=== PATIENT | male | born 1950 | race Caucasian/White ===

== ENCOUNTER 2022-01-02 14:00 | Outpatient (RCR) | payer MEDICARE, BC, SELFPAY ==
--- NOTE | 2021-10-12 12:51 | OT.OPGNE ---
OT Outpatient General/Neuro Eval OT Outpatient General/Neuro Eval Start: 10/11/21 15:55 Freq: Status: Active Protocol: Document 10/11/21 16:00 SMW (Rec: 10/12/21 12:35 SMW [id number]) E-Signed By Jenna Collazo OT Insurance Information Insurance Information Insurance Information Medicare B Outpatient History/Precautions Medical/Functional History Medical History Reviewed Yes Prior Level of Function/Mobility Patient lives alone in his own home. He reports independence in ADLS and most IADLS. He has neighbors that assist with outdoor yardwork and snow removal. He drives. He has had housekeeping services in the past and plans to reinstate services in the future. It is recommended he use a walker for mobility however, patient states he does not. He will use a cane inconsistantly. Current Condition Treatment Diagnosis decreased cognitive abilities for higher level executive function tasks. Social History Type of Dwelling Multilevel Home Lives With: Alone Physical Barriers in Home Environment Railing Ascend Right,Railing Ascend Left Employment Status Retired Oriented Patient Orientation Person,Place,Time,Situation Patient Subjective Subjective Patient Subjective I plan to tell me son that I am here today. Home Maintenance Assessment ADL Oral Care Ability Independent Bathing Ability Independent Eating (Feeding) Ability Independent Upper Body Dressing Ability Independent Lower Body Dressing Ability Independent Grooming Ability Independent Toileting Ability Independent Cognitive Assessments Performed Cognitive Assessments Performed Cognitive Assessments Performed MoCA home safety/problem solving Assessment Assessment Assessment The patient is a 70 year old male referred to outpatient OT for mild cognitive impairment . Patient lives alone in his own home. He reports I in all ADLs and most IADLs. He has outside family support from 2 sons. One of which is local. Today, the patient arrives to therapy without an assistive device, stating he left his cane in the car. His gait is poor, slow and very unsteady. He was pleasant during the OT evaluation. He is very social and does need some redirection to stay on task. The MoCa was administered with the patient scoring 26/20. Home safety/problem solving given with the patient scoring 14.5/ 17. Patient reports that son's would like him to move to an assisted living apartment in town. He has refused this and wants to stay in his home as long as possible. He is wearing a lifeline. He will benefit from skilled OT services to continue cognitive assessments, develop compensatory strategies and educate patient and family. Occupational Therapy Treatment Plan - OP Goals Goals Within 5 visits, the patient will.. 1. complete cognitive assessments in order to determine appropriate safety measures in order to stay in own home. 2. verbalize and follow thru with 3 compensatory strategies for decreased memory and executive function. 3. be educated on recommendations for safety in remaining in home. Progress set Treatment Plan Treatment Plan Self-Care/Home Management Expected Frequency 1x Week Expected Duration 4-6 Weeks Certification Certification I Certify That: Therapy Services Provided, Therapy Plan Established Document 10/11/21 16:30 SM (Rec: 10/12/21 12:50 SMW [id number]) E-Signed By Jenna Collazo OT Insurance Information Insurance Information Insurance Information Medicare B Outpatient History/Precautions Medical/Functional History Medical History Reviewed Yes Prior Level of Function/Mobility Patient lives alone in his own home. He reports independence in ADLS and most IADLS. He has neighbors that assist with outdoor yardwork and snow removal. He drives. He has had housekeeping services in the past and plans to reinstate services in the future. It is recommended he use a walker for mobility however, patient states he does not. He will use a cane inconsistantly. Social History Type of Dwelling [place] Home Lives With: Alone Physical Barriers in Home Environment Railing Ascend Right,Railing Ascend Left Employment Status Retired Oriented Patient Orientation Person,Place,Time,Situation Home Maintenance Assessment ADL Oral Care Ability Independent Bathing Ability Independent Eating (Feeding) Ability Independent Upper Body Dressing Ability Independent Lower Body Dressing Ability Independent Grooming Ability Independent Toileting Ability Independent Ambulation Ability Independent Home Management Meal Preparation Ability Independent Cleaning Ability Independent Shopping Ability Independent Cognitive Assessments Performed Cognitive Assessments Performed Cognitive Assessments Performed MoCA home safety/problem solving Assessment Assessment Assessment The patient is a 70 year old male referred to outpatient OT for mild cognitive impairment . Patient lives alone in his own home. He reports I in all ADLs and most IADLs. He has outside family support from 2 sons. One of which is local. Today, the patient arrives to therapy without an assistive device, stating he left his cane in the car. His gait is poor, slow and very unsteady. He was pleasant during the OT evaluation. He is very social and does need some redirection to stay on task. The MoCa was administered with the patient scoring 26/20. Home safety/problem solving given with the patient scoring 14.5/ 17. Patient reports that son's would like him to move to an assisted living apartment in town. He has refused this and wants to stay in his home as long as possible. He is wearing a lifeline. He will benefit from skilled OT services to continue cognitive assessments, develop compensatory strategies and educate patient and family. Occupational Therapy Treatment Plan - OP Goals Goals Within 5 visits, the patient will.. 1. complete cognitive assessments in order to determine appropriate safety measures in order to stay in own home. 2. verbalize and follow thru with 3 compensatory strategies for decreased memory and executive function. 3. be educated on recommendations for safety in remaining in home. Treatment Plan Treatment Plan Self-Care/Home Management Expected Frequency 1x Week Expected Duration 4-6 Weeks Certification Certification I Certify That: Therapy Services Provided, Therapy Plan Established
--- NOTE | 2021-11-29 18:24 | OT.OPODN ---
OT Outpatient Ortho Daily Note OT Outpatient Ortho Daily Note Start: 10/03/21 10:59 Freq: Status: Active Protocol: Document 11/29/21 15:27 AMB (Rec: 11/29/21 15:37 AMB [id number]) E-signed By Lucia Enamorado, OTR/L, CLT, CASING FLUID TENDER Type of Note Type of Note Type of Note Recert/Progress Note Visit Number 10 Insurance Information Insurance Information Medicare B Outpatient History/Precautions Insurance Information Insurance Information Medicare B Insurance Information Comments Late billing entered for due to [employer] build. Current Condition/Medical Diagnosis Referring Provider FLORESITA Márquez Treatment Diagnosis BUE CTR and Ulnar Nerve Transposition Date of Onset July 17August 07 Other Precautions SHIRA, has had OT to address this. Medical/Functional History Medical History Reviewed Yes Prior Level of Function/Mobility Patient lives alone in his own home. He reports independence in ADLS and most IADLS. He has neighbors that assist with outdoor yardwork and snow removal. He drives. He has had housekeeping services in the past and plans to reinstate services in the future. It is recommended he use a walker for mobility however, patient states he does not. He will use a cane inconsistantly. Social History Physical Barriers in Home Environment Railing Ascend Right,Railing Ascend Left Employment Status Retired Hobbies Pt loves to read. Oriented Mental Status Comments Pt did receive OT to address MCI. Ortho Subjective Subjective Subjective Pt no longer having constant pain. Pt states he is able to sleep if he remembers to put on his splints but he often forgets. Ptain is now down to 3-4/10 Pain Assessment Pain Present Pain Present Pain Reported Location Hand Description Burning,Sharp,Throbbing,Spasm, Stabbing,Shooting Intensity 4 OT OP Daily Ortho Note/Assessment Therapeutic Exercise Therapeutic Exercise Minutes (minutes) 10 Therapeutic Exercise Comments Review of HEP including BUE hand strengthening with green t-putty. Exs included hand rolling, tip pinch, lateral pinch, resisted MP flexion, gripping, and finger adduction . Pt requires demo and multiple cues for proper technique. Reviewed importance of wearing splints at night to relieve pressure and allow for good blood flow and nn conduction. Made signs for pt to hang on his bathroom mirror to remind him to wear splints to bed and to do his exercises. Ultrasound Ultrasound Location & Joint Position BUE volar wrists for anti- inflammatory and circulatory benefit as well as scar management 10 min each side. Ultrasound Frequency & Mode 1 MHz Pulsed Intensity (w/cm2) 1.5 Ultrasound Duration 10 minute Manual Therapy Manual Therapy Minutes (minutes) 15 Manual Therapy Comments Provided MT for STM and retrograde massage, IASTM for scar tissue release using Graston tools, BUE volar wrists and hands. Education Provided Exercise/Activity Teaching Recipient Patient Teaching Methods Verbal,Demonstration,Handout Response to Teaching Verbalize Understanding,Return Demonstration,Reinforcement Needed Safety Recommendations Teaching Recipient Patient Teaching Methods Verbal,Demonstration,Handout, Reinforcement Response to Teaching Verbalize Understanding,Return Demonstration,Reinforcement Needed Education Comments Pt needs lots of reminders and re-assurance. OT Objective Data Hand Hand Dominance Right Additional Information Objective Additional Information 11/29/21 Web Developer on the RUE is 47# , LUE is 38#. 3pt pinch on the RUE is 10#, LUE is 5#. Lateral pinch on the RUE is 14 #, LUE is 6#. AROM of the RUE wrist flexion is 80, ext is 70, UD is 40, RD is 25. AROM of the LUE wrist flexion is 80 , ext is 80, UD is 40, RD is 30. Monofilament tessting on the RUE thumb=3.61, Index=2.83 , 3rd digit=3.61, 4th digit=4. 31, 5th = 4.31, LUE thumb=3.61 , Index=2.83, 3rd digit=2.83, 4th digit = 2.83, and 5th digit is 3.61. 10/31/21 Web Developer on the RUE is 45# , LUE is 30#. 3pt pinch on the RUE is 8#, LUE is 4#. Lateral pinch on the RUE is 13 #, LUE is 6#. 10/24/21 Web Developer on RUE is 40#, LUE is 32#. Lateral pinch on RUE is 11#, LUE is 4#. 3pt pinch on RUE is 9#, LUE is 4#. 10/10/21 Web Developer on RUE is 45#, LUE is 44#. 3pt pinch on RUE is 9#, LUE is 5#, lateral pinch on RUE is 12#, LUE is 6#. 09/18/21 Web Developer on the RUE is 37# , LUE is 35#. 3pt pinch on the RUE is 83, LUE is 4#. Lateral pinch on the RUE is 12#, LUE is 6#. 08/28/21 AROM of the RUE wrist flexion is 65, ext is 70, UD is 40, RD is 25, pronation and supination are WNL. AROM of the LUE wrist flexion is 80, ext is 80, UD is 35, RD is 25, pronation and supination are WNL. Monofilament testing on the RUE thumb 2.83, I 3.61, 3rd 4.31, 4th 4.31, 5th 4.31. Monofilament testing on the LUE Th 3.61, I 2.83, I 2.83, 3rd 2.83, 4th 2.83. Web Developer on th eRUE is 28#, , LUE is 25#. 3pt pinch on the RUE is 6#, LUE is 2#. Lateral pinch on the RUE is 8#, LUE is 6#. AROM of BUE elbows are WFL, strength 4/5 flexion and extension. Incisional area are well healed, no drainage, skin is very dry. Pt is very unsteady on his feet, reaches for the wall and furniture, admits to multiple falls, lives alone but does have life alert. Pt is seeing PT tomorrow to address gait and balance. [ End ] Upper Extremity Special Tests Upper Extremity Special Tests Comments Comments Sensory improvements continue to be slow and inconsistent. OT Problems Problems Patient Potential Fair Assessment Assessment Assessment Pt demonstrates nice gains in ROM and strength. Sensory improvements slow and inconsistent / slowly. Progress has been limited due to cognitive deficits and pt forgetting to do exs and has not been wearing his splints. Pt will benefit from continued OT services to address remaining deficits including weakness which impairs his ability to zip / button clothing and waste picker small objects like change. Pt also states that sometimes he has trouble with eating utensils as well. Pt will benefit from continued skilled OT intervention to address residual weakness to improve / restore functional use of BUE . OT Outpatient Treatment Plan Ortho Barriers Barriers to Goal Attainment Impaired cognition, high fall risk with refusal to use AD Occupational Therapy Treatment Plan - OP Potential Rehabilitation Potential Fair Set Goals Goals Set with Patient Yes Goals Goals 1. Pt will be independent and compliant with HEP in order to resume full, pain-free use of the BUE. 3 weeks 2. Pt will demonstrate full, pain-free AROM of the BUE in order to improve ability to grasp and hold. 6 weeks 3. Pt will demonstrate pain- free pencil maker and pinch strength comparable to average for age and gender in order to improve functional grasp, hold, reach, and lifting ability needed to complete self-care, leisure tasks, and work activities. 8 weeks. Progress set Treatment Plan Treatment Plan Evaluation,Edema Control, Manual Therapy,Splinting, Ultrasound,Wound Care/Scar Management,Therapeutic Exercise,Therapeutic Activities Expected Frequency 1x Week Expected Duration 4-6 Weeks OT Treatment Minutes Treatment Minutes Timed Treatment Minutes 45 Total Timed Treatment Minutes 45 Occupational Therapy Billing Units Billing Units Manual Therapy 1 Therapeutic Exercise 1 Ultrasound 1 Certification Certification I Certify That: Therapy Services Provided, Therapy Plan Established, Therapy Plan Reviewed Recertification Information Recertification Information Initial Certification Date 08/28/21 Recertification Start Date 11/29/21 Recertification Due Date 02/28/22 Reasons to Continue Skilled Therapy Pt will benefit from continued OT services to address remaining deficits including weakness which impairs his ability to zip / button clothing and waste picker small objects like change. Pt also states that sometimes he has trouble with eating utensils as well. Pt will benefit from continued skilled OT intervention to address residual weakness to improve / restore functional use of BUE . Rehabilitation Potential Fair secondary to cognitive deficits, needs reminders and intervention for HEP. Continued Plan of Care and Interventions Continue OT 1-2x week US, MT, TA, TE, and self care. Provider Signature Shows Agreement With POC & Medical Necessity Physician Comment/Change Comment or Changes Physician NPI Number #
== END 2022-01-02 15:01 | disposition home or self-care (01) ==
PROVIDERS: PCP Family Medicine; Visit Provider Physician Assistant
DX: R26.9 Unspecified abnormalities of gait and mobility (principal)
CPT/HCPCS: 97035; 97110; 97112; 97116; 97140; 97165; 97535; X5282

== ENCOUNTER 2022-03-14 12:01 | Outpatient (CLI) | payer MEDICARE, BC, SELFPAY | END 2022-03-14 12:02 | disposition home or self-care (01) | LOC: OP CLINIC 12:02 | PROVIDERS: PCP Family Medicine; Visit Provider Surgery | DX: Z12.11 Encounter for screening for malignant neoplasm of colon (principal); K63.5 Polyp of colon; K57.30 Diverticulosis of large intestine without perforation or abscess without bleeding; Z86.010 Personal history of colon polyps | CPT/HCPCS: 45385; 88302; 88305; 99153; J1200; J2250; J3010 ==

== ENCOUNTER 2022-04-15 13:05 | Outpatient (CLI) | payer MEDICARE, BC, SELFPAY ==
[2022-04-15 23:20] LABS: Chloride* 107 mmol/L (96-114); Sodium* 139 mmol/L (135-149)
[2022-04-15 23:21] LABS: Potassium* 4.6 mmol/L (3.6-5.1)
[2022-04-15 23:23] LABS: Alanine Aminotransferase* 20 U/L (4-50); Blood Urea Nitrogen* 14 mg/dL (7-30); Carbon Dioxide* 25 mmol/L (20-32); Cholesterol* 99 mg/dL (90-199); Creatinine* 0.7 mg/dL (0.5-1.5); Estimated Glomerular Filt Rate 97 ml/min
[2022-04-15 23:24] LABS: Calcium* 8.8 mg/dL (8.4-10.6); Glucose* 100 mg/dL (60-115); HDL Cholesterol* 28 mg/dL (>=40); LDL Cholesterol Calculated 52 mg/dL (<100); Magnesium* 1.8 mg/dL (1.5-2.6); Triglycerides* 94 mg/dL (40-149)
[2022-04-15 23:33] LABS: Vitamin D 25 Hydroxy* 48 ng/mL (30-80)
[2022-04-15 23:49] LABS: PSA Screen* 2.44 ng/mL (0.10-4.00)
[2022-04-16 00:07] LABS: Vitamin B12* 756 pg/mL (243-894)
== END 2022-04-15 13:06 | disposition home or self-care (01) ==
PROVIDERS: PCP Family Medicine; Visit Provider Family Medicine
DX: E78.5 Hyperlipidemia, unspecified (principal); I10 Essential (primary) hypertension; E55.9 Vitamin D deficiency, unspecified; E11.9 Type 2 diabetes mellitus without complications; R53.1 Weakness; G62.9 Polyneuropathy, unspecified; Z12.5 Encounter for screening for malignant neoplasm of prostate
CPT/HCPCS: 80048; 80061; 82306; 82607; 83735; 84153; 84460

== ENCOUNTER 2023-01-29 12:25 | Outpatient (CLI) | payer MEDICARE, BC, SELFPAY | END 2023-01-29 12:26 | disposition home or self-care (01) | LOC: FBOREF 12:25 | PROVIDERS: PCP Family Medicine; Visit Provider Family Medicine | DX: I10 Essential (primary) hypertension (principal) | CPT/HCPCS: 80048 ==

== ENCOUNTER 2023-04-09 12:50 | Outpatient (CLI) | payer MEDICARE, BC, SELFPAY | END 2023-04-09 12:51 | disposition home or self-care (01) | PROVIDERS: PCP Family Medicine; Visit Provider Family Medicine | DX: E78.2 Mixed hyperlipidemia (principal); E11.9 Type 2 diabetes mellitus without complications; E55.9 Vitamin D deficiency, unspecified; I10 Essential (primary) hypertension; R32 Unspecified urinary incontinence | CPT/HCPCS: 80048; 80061; 81015; 84460; G0103 ==

== ENCOUNTER 2023-05-22 08:43 | Outpatient (CLI) | payer MEDICARE, BC, SELFPAY ==
--- NOTE | 2023-05-22 09:55 | W.ANESCHARGE ---
Anesthesia Charges Start Date/Time Anesthesia Start Date: 05/22/23 Anesthesia Start Time: 09:24 Stop Date/Time Anesthesia Stop Date: 05/22/23 Anesthesia Stop Time: 09:54
--- NOTE | 2023-05-22 10:09 | W.ANESCHARGE ---
Anesthesia Charges Start Date/Time Anesthesia Start Date: 05/22/23 Anesthesia Start Time: 09:24 Stop Date/Time Anesthesia Stop Date: 05/22/23 Anesthesia Stop Time: 09:54 Summary Extremes of Age - Over 70 or under 1: MDA
== END 2023-05-22 08:44 | disposition home or self-care (01) ==
LOC: OP CLINIC 08:45
PROVIDERS: PCP Family Medicine; Visit Provider Surgery
DX: K63.5 Polyp of colon (principal); K57.30 Diverticulosis of large intestine without perforation or abscess without bleeding; K64.9 Unspecified hemorrhoids; Z86.010 Personal history of colon polyps
CPT/HCPCS: 00811; 45385; 88305; 99100; J2704

== ENCOUNTER 2023-08-07 11:00 | Outpatient (RCR) | payer MEDICARE, SELFPAY ==
--- NOTE | 2023-05-01 16:09 | PT.OPEX ---
PT [place] Outpatient Eval initial eval requires signature PT [facility] Outpatient Eval Start: 05/01/23 07:50 Freq: Status: Active Protocol: Document 05/01/23 11:55 MIKE (Rec: 05/01/23 16:01 MIKE [id number]) E-signed By Facundo Still DPT Physical Therapy Outpatient Evaluation Insurance Information Recert Due Date 07/25/23 Insurance Name Medicare B,Blue [employer] Shield Medical Diagnosis balance disorder Treating Diagnosis unsteadiness on feet difficulty in walking muscle weakness Referring MD Elver Resendez Subjective Subjective *10 min late EllisMikel jackson, comes into clinic dealing with balance deficits and minimal amounts of low back pain.Pt states he needing his SPC along with occasional assist from sons or people in community to safely walk. States no falls in the last 6 months as he is very careful and intentional with movements. States he owns a FWW but does not like to use because it is 'awkward' and would feel like he is regressing. Has stairs at home with railings on both sides that he is also very careful with using. Pain Comments 0.5/10 Current Work Status Retired Precautions Treatment Precautions/Contraindications diabetes, balance disorder, hx of cancer-Squamous cell skin cancer, elbow, neuropathy, mild cognitive impairment, hx L rcr, hx or B TKA Objective Other/Pertinent Objective GAIT/FUNCTIONAL MOBILITY ambulates with SPC and use of Min A from therapist, increased flexed posture with ambulation Modified CTSIB- Clinical Test of Sensory Interaction and Balance - need 30 seconds Romberg eyes open firm surface : 30 seconds with feet within shoulder width but not touching Romberg eyes closed firm surface: 18 seconds with feet within shoulder width but not touching Romberg eyes open foam surface :14 seconds with feet within shoulder width but not touching Romberg eyes closed foam surface: 2 seconds with feet within shoulder width but not touching 5 time sts: 19 sec with UE assist, unable to perform without UE assist TUG 29-36 sec with SPC and FWW LLE MMT: Hip flexion: 4/5B Hip abduction: 4/5B Knee flexion: 4+/5B Knee extension: 4/5B Functional Test Performed & Score Modified CTSIB- Clinical Test of Sensory Interaction and Balance - need 30 seconds Romberg eyes open firm surface : 30 seconds with feet within shoulder width but not touching Romberg eyes closed firm surface: 18 seconds with feet within shoulder width but not touching Romberg eyes open foam surface :14 seconds with feet within shoulder width but not touching Romberg eyes closed foam surface: 2 seconds with feet within shoulder width but not touching 5 time sts: 19 sec with UE assist, unable to perform without UE assist TUG 29-36 sec with SPC and FWW Assessment Assessment/Impression Pt is a 72 yr old male who presents with concerns of balance deficits and generalized LE muscle weakness . Patient also has notable objective findings including impaired balance and decreased strength also likely contributing to the problem, based on objective findings pt would be considered a high fall risk. It was discussed with patient how a FWW would be the recommended AD of choice at this time to allow for the most support and stability. Patient is a good candidate for skilled therapy to target deficits described above. Skilled PT intervention is necessary for use of therapeutic exercise manual therapy, neuromuscular re- education, gait training, and therapeutic activity. Functional impairments include difficulty with: walking standing stairs . See appropriate sections of PT eval for complete list of goals and POC. D/C plan and criteria is for pt to achieve the goals as listed below or until max rehab potential is met. Pt was agreeable with plan of care and goals established. Plan of Care Rehabilitation Potential Fair Physical Therapy Goals GOALS Patient will demonstrate/ report ability to Tandem for 30 seconds bilateral , to allow for safety, improved ambulation on uneven terrain within 12 weeks Patient will demonstrate/ report ability to perform 5 time sts <12 seconds, to demonstrate improved falls risk within 12weeks Patient will demonstrate/ report ability to perform TUG <13.5 seconds with least restrictive device to demonstrate improved falls risk within 12 weeks Pt will be independent with HEP within weeks to allow for independence and continued improvement past formal therapy Coordination/Communication With Referral Source Treatment Plan/Direct Interventions Gait Training,Joint Mobilization,Manual Therapy, Neuromuscular Re-ed,Self-Care/ Home Management,Therapeutic Activities,Therapeutic Exercises Frequency/Duration 1-2 visits a week for 12 visits Patient Will Be Discharged From Therapy Completion of LTG(s), Independent w/HEP, Independently Progressing Evaluation Billing Untimed Code Treatment Minutes 30 Complexity Moderate Certification Information Physician Comment/Change : Physician NPI Number #
--- NOTE | 2023-07-24 17:04 | PT.OPDNX ---
Please review and sign the attached physical therapy recertification note. Most recent visit on 07/24/23. Thank you. PT [facility] Daily Note PT [facility] Daily Note Start: 05/01/23 07:50 Freq: Status: Active Protocol: Document 07/24/23 09:41 TLQ (Rec: 07/24/23 16:57 TLQ [id number]) E-signed By Elda Orr DPT PT OP Daily Progress Note Visit Information Note Type Daily Note,Recert/Progress Note Visit Number [id number] Insurance Information Recert Due Date 07/25/23 Insurance Name Medicare B,Ther[employer] Cross/[employer] Shield Medical Diagnosis balance disorder Treating Diagnosis unsteadiness on feet difficulty in walking muscle weakness Referring MD Elver Resendez Subjective Subjective Here without his cane today, forgot it at home. *patient arrived late for 07/23 appointment* Preferred Name Mikel Jay Treatment Precautions/Contraindications diabetes, balance disorder, hx of cancer-Squamous cell skin cancer, elbow, neuropathy, mild cognitive impairment, hx L rcr, hx or B TKA Home Exercise Home Exercise Comments Access Code: [email or web address] URL: [email or web address] Date: 07/07/2023 Prepared by: Elda Orr Exercises - Standing Narrow Base of Support with Chair - 3 x daily - 7 x weekly - 2-4 sets - 30-60 sec hold - Sit to Stand with Counter Support - 2-3 x daily - 7 x weekly - 1 sets - 10-15 reps - Heel Raises with Counter Support - 2-3 x daily - 7 x weekly - 1 sets - 10-15 reps - Seated Long Arc Quad - 2-3 x daily - 7 x weekly - 1 sets - 10 reps - 5-10sec hold - Standing Shoulder Scaption - 2 x daily - 7 x weekly - 1 sets - 10-20 reps - 3-5 hold - Side Stepping with Counter Support - 2 x daily - 7 x weekly - 2-3 sets - Backward Walking with Counter Support - 2 x daily - 7 x weekly - 2-3 sets Objective Other/Pertinent Objective gait: with 4ww: increased sway needing increased cueing to stay close to walker gait: with SEC: wide ARLETTE, slow twila, frequent touch assist from furniture/wall 5xSTS: 19 sec with UE assist, unable to perform without UE assist --> 15 seconds without UE assist, lacks full hip extension TUG 29-36 sec with SPC and FWW --> 16 seconds with SPC Functional Test Performed & Score Modified CTSIB- Clinical Test of Sensory Interaction and Balance - need 30 seconds Romberg eyes open firm surface : 30 seconds with feet within shoulder width but not touching Romberg eyes closed firm surface: 18 seconds with feet within shoulder width but not touching --> 28 seconds, mild postural sway Romberg eyes open foam surface :14 seconds with feet within shoulder width but not touching --> 30 seconds, moderate postural sway Romberg eyes closed foam surface: 2 seconds with feet within shoulder width but not touching Patient Instructed in Risks/Benefits Yes Therapeutic Exercise Therapeutic Exercise Minutes (minutes) 14 Therapeutic Exercise: To Restore - sit to stand x10 reps, cues Functional Status for eccentric control trialed no UE - standing squats with finger tip to no UE support x10 - standing marches at counter with support x20 reps - side steps along counter decreasing UE support to no external assist *seated rest between interventions* Neuromuscular Re-Ed Neuromuscular Reeducation Minutes ( 16 minutes) Neuromuscular Reeducation Comments - static balance: wide mod. tandem stance x20 second holds - standing forward and lateral weight shifts with stepping over yoga block, 1 hand on counter support, fatigues - static balance wide ARLETTE with e.c. on firm surface x20 seconds, close SBA - retro walks x10' distances, slow steps with close SBA *seated rest between interventions* other interventions not completed today: - standing balance normal ARLETTE with lateral reaching tasks and trunk rotation (ND) - static balance with head turns/nods x30 second bouts ( ND) Treatment Minutes Timed Code Treatment Minutes 30 Total Treatment Time 30 Billing Units Neuromuscular Reeducation Units 1 Therapeutic Exercise Units 1 Assessment/Impression Assessment/Impression Mikel returns to the clinic today ambulating without use of an assistive device, states he forgot his cane at home. Needing to use contact on therapists arm to slowly ambulate between therapy gym and clinic entrance. Patient states he has extra canes at home, I recommended he keep one these in his car to use as a back-up in case he forgets his cane again. As previously documented, this PT recommends patient use FWW for mobility as he moves more efficiently and with less postural sway when using walker versus cane, patient verbally declined this recommendation. Continues to fatigue quickly with standing strength and balance interventions, seated rest taken every 1-2 interventions with v/c for breathing for recovery. Reassessed CTSIB today, demonstrates improvements with conditions 2 and 3 but continues to required wider stance than Romberg stance for this assessment. He is appropriate for and will benefit from continued skilled interventions for conditioning , strength, and balance. Plan of Care Physical Therapy Goals GOALS Patient will demonstrate/ report ability to Tandem for 30 seconds bilateral, to allow for safety, improved ambulation on uneven terrain within 12 weeks. (PROGRESSING) Patient will demonstrate/ report ability to perform 5 time STS <12 seconds, to demonstrate improved falls risk within 12weeks. ( PROGRESSING) Patient will demonstrate/ report ability to perform TUG <13.5 seconds with least restrictive device to demonstrate improved falls risk within 12 weeks. ( PROGRESSING) Pt will be independent with HEP within 12 weeks to allow for independence and continued improvement past formal therapy. Daily Plan of Care Continue per POC Daily Plan of Care Comments Functional strength: side steps Static balance Dynamic balance Ambulatory endurance Recertification Information Initial Certification Date 05/01/23 Recertification Start Date 07/25/23 Recertification Due Date 10/23/23 Reasons to Continue Skilled Therapy Mikel continues to demonstrate functional balance deficits and limited endurance to physical activities. Slowly progressing strength and balance interventions to decrease risk of falls with home and community mobility. Continued skilled interventions appropriate to progress interventions to meet physical therapy goals. Rehabilitation Potential Fair Continued Plan of Care and Interventions Therapeutic exercise Therapeutic activity Gait training Neuromuscular re-education Provider Signature Shows Agreement With POC & Medical Necessity Physician Comment/Change Comment or Changes Physician NPI Number #
== END 2023-09-24 11:14 | disposition home or self-care (01) ==
PROVIDERS: PCP Family Medicine; Visit Provider Family Medicine
DX: R26.89 Other abnormalities of gait and mobility (principal); R26.81 Unsteadiness on feet; M62.81 Muscle weakness (generalized); Z51.89 Encounter for other specified aftercare
CPT/HCPCS: 97110; 97112; 97162

== ENCOUNTER 2024-04-16 11:00 | Outpatient (CLI) | payer MEDICARE, BC, SELFPAY | END 2024-04-16 11:01 | disposition home or self-care (01) | PROVIDERS: PCP Family Medicine; Visit Provider Family Medicine | DX: E11.9 Type 2 diabetes mellitus without complications (principal); E78.2 Mixed hyperlipidemia; Z12.5 Encounter for screening for malignant neoplasm of prostate; I10 Essential (primary) hypertension | CPT/HCPCS: 80048; 80061; 84460; G0103 ==

== ENCOUNTER 2024-05-31 06:56 | Outpatient (CLI) | payer MEDICARE, BC, SELFPAY ==
--- NOTE | 2024-05-31 08:21 | P.ANES_ITS ---
Anesthesia Charges Start Date/Time Anesthesia Start Date: 05/31/24 Anesthesia Start Time: 07:54 Stop Date/Time Anesthesia Stop Date: 05/31/24 Anesthesia Stop Time: 08:19 Summary Extremes of Age - Over 70 or under 1: BRAND COMMUNICATIONS MANAGER Coding CPT Codes CPT Codes: ANERonal LWR INTST SCR COLSC - 94687 ([id number]) P2 - PATIENT W/MILD SYST DISEASE, QX - BRAND COMMUNICATIONS MANAGER SVC W/ MD MED DIRECTION, QK - HOT PATCHER 2-4 CNCRNT ANES PROC Additional Codes: Summary - Extremes of Age - Over 70 or under 1: BRAND COMMUNICATIONS MANAGER ([id number])
--- NOTE | 2024-05-31 08:21 | W.ANESCHARGE ---
Anesthesia Charges Start Date/Time Anesthesia Start Date: 05/31/24 Anesthesia Start Time: 07:54 Stop Date/Time Anesthesia Stop Date: 05/31/24 Anesthesia Stop Time: 08:19 Summary Extremes of Age - Over 70 or under 1: PRODUCTION MANAGER Coding CPT Codes CPT Codes: ANERonal LWR INTST SCR COLSC - 07529 ([id number]) P2 - PATIENT W/MILD SYST DISEASE, QX - PRODUCTION MANAGER SVC W/ MD MED DIRECTION, QK - HAIRSPRING SETTER 2-4 CNCRNT ANES PROC Additional Codes: Summary - Extremes of Age - Over 70 or under 1: PRODUCTION MANAGER ([id number])
--- NOTE | 2024-05-31 08:25 | P.ANES_ITS ---
Anesthesia Charges Start Date/Time Anesthesia Start Date: 05/31/24 Anesthesia Start Time: 07:54 Stop Date/Time Anesthesia Stop Date: 05/31/24 Anesthesia Stop Time: 08:19 Summary Extremes of Age - Over 70 or under 1: MDA Coding CPT Codes CPT Codes: ANES LWR INTST SCR COLSC - 41065 ([id number]) P2 - PATIENT W/MILD SYST DISEASE, QK - PIE ICER MACHINE 2-4 CNCRNT ANES PROC, QX - TOBACCO STRIPPING MACHINE OPERATOR SVC W/ MD MED DIRECTION Additional Codes: Summary - Extremes of Age - Over 70 or under 1: MDA ([id number])
--- NOTE | 2024-05-31 08:25 | W.ANESCHARGE ---
Anesthesia Charges Start Date/Time Anesthesia Start Date: 05/31/24 Anesthesia Start Time: 07:54 Stop Date/Time Anesthesia Stop Date: 05/31/24 Anesthesia Stop Time: 08:19 Summary Extremes of Age - Over 70 or under 1: MDA Coding CPT Codes CPT Codes: ANES LWR INTST SCR COLSC - 37836 ([id number]) P2 - PATIENT W/MILD SYST DISEASE, QK - MEDICAL MALPRACTICE PARALEGAL 2-4 CNCRNT ANES PROC, QX - EXCELSIOR MACHINE FEEDER SVC W/ MD MED DIRECTION Additional Codes: Summary - Extremes of Age - Over 70 or under 1: MDA ([id number])
== END 2024-05-31 06:57 | disposition home or self-care (01) ==
LOC: OP CLINIC 06:57
PROVIDERS: PCP Family Medicine; Visit Provider Internal Medicine
DX: Z12.11 Encounter for screening for malignant neoplasm of colon (principal); Z86.0100 Personal history of colon polyps, unspecified; K57.30 Diverticulosis of large intestine without perforation or abscess without bleeding
CPT/HCPCS: 00812; 45378; 99100; J2704

== ENCOUNTER 2024-08-31 13:30 | Outpatient (RCR) | payer MEDICARE, BC, SELFPAY ==
--- NOTE | 2024-08-10 15:42 | PT.OPEX ---
PT [facility] Eval PT [facility] Eval Start: 08/10/24 12:59 Freq: Status: Active Protocol: Document 08/10/24 13:00 CRP (Rec: 08/10/24 15:39 CRP [id number]) E-signed By Shorty Shrestha PT Physical Therapy Outpatient Evaluation Insurance Information Recert Due Date 11/08/24 Insurance Name Medicare B Medical Diagnosis Left Low Back Pain Balance deficits Referring MD Capri Arthur CHANNEL INSTALLER Subjective Subjective Pt has a long hx of lumbar spine issues. Has had synovial cysts that needed to be addressed surgically. Had fusion about 7 years ago at the lumbar spine. Once he recovered from the surgery he did well. About 6 weeks ago he started having a lot of problems trying to go to sleep at night. Back was very painful. Days were pretty good. Pt did go to urgent care beginning of July. Overall he had been having some degree of LBP for about 6 months. Was prescribed Flexiril and pt took ibuprofen . Pt reports that he has been nearly pain free for about a week. Pt notes that along with his LBP he has had a long hx of balance issues. Needs some sort of AD. Is currently using walking stick. Pain Comments 0/10 Current Work Status Retired Objective Other/Pertinent Objective Standing balance: compromised, See Tinetti Balance Score Trunk ROM: frank loss into ext, frank loss bilat ext. flex mod dec Hip ROM WFL MMT: Myotomes WNL. Hip ext 4- /5 bilat Sensation: Intact to light touch bilat LEs SLS balance test: unable bilaterally without 2 hand held assist Gait: Pt ambulates with a walking stick. Shows very wide base of support. He is at risk for falling with any change in direction. Pt also shows risk for falling with starting and stopping momentum Functional Test Performed & Score Tinetti: 04/03 Assessment Assessment/Impression Pt presents to PT after recent bout of severe LBP. Pt has only been without LBP for about a week but still shows restricted trunk mobility and risk for return of sxs with increased activity. Pt's history and current findings with trunk mobility suggest a mechanical nature to his pain that should respond well to guided exer. At this time, there is more concern for his balance deficits. Pt notes that he is feeling more and more insecure about his gait and balance and is coping with this by choosing to do less and less. Pt is objectively at high risk for falls as noted by a 04/03 on his Tinetti Balance Score. Skilled PT is recommended to address ongoing mechanical dysfunction of the trunk as well as address ongoing issues with balance and his increased risk for falling. Primary Functional Limitations Sit to stand Static stance Gait Balance with transitional movements Plan of Care Rehabilitation Potential Good Physical Therapy Goals 1. Pt will be independent with HEP in 8 weeks. 2. Pt will complete self cares without co in 10 weeks. 3. Pt will score 22 or greater on Tinetti Balance Score thereby showing substantial change in his risk for falling in 12 weeks. Coordination/Communication With Referral Source Treatment Plan/Direct Interventions Gait Training,Manual Therapy, Neuromuscular Re-ed,Self-Care/ Home Management,Therapeutic Activities,Therapeutic Exercises Direct Interventions Clarification Balance exercise Comments Frequency/Duration 1-2x/wk for 12 weeks Patient Will Be Discharged From Therapy Completion of LTG(s),Skills Plateau,Independent w/HEP, Independently Progressing Evaluation Billing Untimed Code Treatment Minutes 40 Complexity Moderate Certification Information Initial Certification Date 08/10/24 Ending Certification Date 11/08/24 Provider Signature Required Yes Provider Signature Shows Agreement With POC & Medical Necessity Physician NPI Number Write NPI# Here Physician Comment/Change : Physician Signature & Date Requested Please Sign/Date Here
== END 2024-12-29 23:59 | disposition home or self-care (01) ==
PROVIDERS: PCP Family Medicine; Visit Provider Nurse Practitioner
DX: M54.50 Low back pain, unspecified (principal); Z51.89 Encounter for other specified aftercare
CPT/HCPCS: 97110; 97112; 97116; 97162

== ENCOUNTER 2025-03-20 15:18 | Emergency (ER) | payer MEDICARE, BC, SELFPAY ==
--- OUTSIDE RECORDS SUMMARY | 2025-03-20 15:20 | XMS_ITS | Clinical Summary ---
Author Organization [facility] Address [address] [place] [address] Care Team Providers Care Primer Powder Blender Wet Name Role Phone Elver Dumont MD Primary Care Provider + Allergies No known active allergies Medications MedicationSigDispense QuantityRefillsLast FilledStart DateEnd DateStatus cyanocobalamin 1,000 mcg tablet Take 1,000 mcg by mouth once weekly.Active simvastatin (ZOCOR) 20 mg tablet Take 20 mg by mouth at bedtime.Active ibuprofen (ADVIL; MOTRIN) 200 mg tablet Take 600 mg by mouth every 4 hours if needed.Active gabapentin (NEURONTIN) 300 mg capsule TAKE 2 CAPSULES BY MOUTH THREE TIMES DAILY NEEDED FOR PAIN12/15/2020ctive furosemide (LASIX) 20 mg tablet Take 20 mg by mouth once daily.12/13/2020ctive melatonin 3 mg tablet Take 3 mg by mouth.Active FLUoxetine (PROZAC) 20 mg capsule Take 20 mg by mouth once daily.12/15/2020ctive HYDROmorphone (DILAUDID) 4 mg tablet TAKE 1 TABLET BY MOUTH EVERY 4 TO 6 HOURS FTFTFA6312/15/2020ctive cholecalciferol (VITAMIN D3) 50,000 unit capsule 01/15/2020Active pyridoxine, vitamin B6, (VITAMIN B6) 25 mg tablet Take 1 Tablet by mouth once daily.06/21/2020ctive Active Problems ProblemNoted DateDiagnosed DateRespiratory vrpobgs4212/23/2016Adenomatous polyp of colon12/23/2016 Overview (12/23/2016): Overview: repeat in 2019 Xevapsuqnrdxwp71/18/2017Type 2 diabetes ahwhtyoj72/18/2017Non morbid obesity due to excess zquecjiq82/30/2017Lumbar radiculopathy, acute07/02/2013Essential baqpoegokdvz72/02/2011 Overview (12/23/2016): Overview: Hypertension Osteoarthrosis, unspecified whether generalized or localized, unspecified site 07/31/2007 Immunizations ImmunizationAdministration DatesNext DueHepA-HepB (Twinrix)08/14/2016,02/07/2016 ,01/09/2016Influenza A (H1N1), Fparuchxobd69/11/2010Influenza, High-dose Taaswrvmkit72/31/2019,12/31/2017,12/17/2016,01/09/2016,01/24/2015,12/08/2013 Influenza, High-dose Quadrivalent Ukaumzuybmk22/25/2021,12/09/2019Influenza, IIV3 (Age 6-35 mos)02/04/2012,01/09/2011Influenza, IIV3 (Age >=3 years) 12/25/2006Influenza, IIV4 (Age 6-35 Mos)12/18/2012Pneumococcal Poly,23-Valent (Pneumovax)12/04/2016,03/28/2011Pneumococcal conj 13-Valent (Prevnar 13) 05/17/2015Td (Age >=7 Years)10/04/2003Tdap12/09/2019,04/11/2010Zoster (Shingrix- RZV, recombinant)09/30/2017,06/26/2017Zoster (Zostavax-ZVL, live)03/28/2011 Social History Tobacco UseTypesPacks/DayYears UsedDateSmoking Tobacco: NeverSmokeless Tobacco: NeverAlcohol UseStandard Drinks/WeekCommentsNo0 (1 standard drink = 0.6 oz pure alcohol)Sex and Gender InformationValueDate RecordedSex Assigned at BirthNot on fileLegal SvsVhqi0004/20/2012 5:24 AM CSTGender IdentityNot on fileSexual OrientationNot on file Last Filed Vital Signs Vital SignReadingTime TakenCommentsBlood Bsnagwhx255/6709 10:21 AM CDT Nxign965612/25/2020 10:21 AM XUYYdacibfdlcb91.7 ??C (98.1 ??F)12/25/2020 10:21 AM CDTRespiratory Ehmp266812/26/2016 8:44 AM CDTOxygen Flcgzjbeys44%12/26/2016 8:44 AM CDTInhaled Oxygen Concentration--Kzyiuq03.8 kg (220 lb)12/25/2020 10:21 AM KMMEqbmld749.2 cm (5' 7)12/25/2020 10:21 AM CDTBody Mass Index34.46012/25/2020 10:21 AM CDT Plan of Treatment Health MaintenanceDue DateLast DoneCommentsDepression screening for age 12+ 1960Hepatitis C screening for age 18-7910/31/1966Medicare Wellness for age 65+2013MI (ht and wt on same day) for age 18+, 10/17/2016RSV vaccine for adults or (1 - 1-dose 75+ series)11/01/2023 COVID-19 vaccine series ( season)/, 06/28/2020 Influenza Vaccine (#1)/, 12/31/2017, 12/17/2016, Additional history existsTetanus tqatidf44, 04/11/2010, 10/04/2003 Hepatitis B series for 19+Khuehtenf87/10/2017, 02/07/2016, 01/09/2016 Pneumococcal series for age 50+Lnovpbvly10/30/2017, 05/17/2015, 03/28/2011Zoster (shingles) series for age 50+Yqsfnsafy84/26/2018, 06/26/2017, 03/28/2011 Medical Devices ImplantedTypeAreaManufacturerDevice IdentifierShelf Expiration DateModel / Serial / LotBaseplate Tibial Janee Ii [id number] - [id number] [facility]: KneeSMITH AND NEPHEW [id number]# / / [id number] Patella Janee Ii [id number] - [id number] Implanted:Qty: 1 [facility]29/[facility] Right: KneeSMITH AND NEPHEW [id number]# / / [id number] Sz32 Janee Ii Rnd Penon Pors - [id number] Implanted:Qty: 1 on 12/23/2016 [facility]: KneeSmith And Nephew Xqxbbbvgdjj42/18/[id number]# / / [id number] Bone Surg Simplex - [id number] Implanted:Qty: 1 [facility]29/[facility]nee [id number]# / / [id number] 1/2 Dosehowmedica - [id number] Implanted:Qty: 2 [facility]29/2007 [facility]nee [id number]# / / [id number] Fem [id number] - [id number] Implanted:Qty: 1 [facility]/29/2007 [facility] KneeSMITH AND NEPHEW [id number]# / / [id number] Cr Sz 5-6 9mm Deep Flexion Gii - [id number] Implanted:Qty: 1 [facility]29/2007 [facility] KneeSMITH AND NEPHEW [id number]# / / [id number] Bone 40g Simplex Hv Gentamicin - [id number] Implanted:Qty: 1 on 12/23/2016 [facility]St[facility]en[facility] Znkmhyncvntd87/18/[id number]# / / [id number] Bone 40g Simplex Hv - [id number] Implanted:Qty: 1 on 12/23/2016 [facility] KneeStryker Kvvauqggeeqg81/18/[id number]# / / [id number] Tib Lt Sz 5 Pin Drafter Journey - [id number] Implanted:Qty: 1 on 12/23/2016 [facility] KneeSmith And Nephew Ntrhydxtcwy88/18/[id number]# / / [id number] Lt Sz7 Journey Ii Bcs Oxin - [id number] Implanted:Qty: 1 on 12/23/2016 [facility]: KneeSmith And Nephew Njrgugjqkjr93/18/[id number]# / / [id number] Knee Lt Sz5-6 9mm Journey Ii Bcs Bi Cruc Stbz - [id number] Implanted:Qty: 1 on 12/23/2016 by [facility]: KneeSmith And Nephew Seyfhybcrlk75/18/[id number]# / / [id number] [place] [address] Advance Directives * Full Code (Latest Code Status on File) Date ActivatedDate InactivatedComments12/23/2016 1:24 PM12/26/2016 6:02 PM * Full Code Date ActivatedDate InactivatedComments12/23/2016 12:26 PM12/23/2016 1:24 PM * Full Code Date ActivatedDate InactivatedComments12/23/2016 6:30 AM12/23/2016 12:08 PM * Full Code Date ActivatedDate InactivatedComments07/29/2007 5:49 AM08/02/2007 4:13 PM Care Teams Team MemberRelationshipSpecialtyStart DateEnd Date Elver Dumont MD [address] [place] [id number] [facility] - [facility]/21/20
--- OUTSIDE RECORDS SUMMARY | 2025-03-20 15:20 | XMS_ITS | Clinical Summary ---
Author Organization [facility] Address [address] [place] [address] Care Team Providers Care Gaming Dealer Name Role Phone Aleyda Porras MD Primary Care Provider Source Comments You are receiving this document as you are listed as the primary care provider,follow-up provider, or the patient has been referred to you for consultation.This is in compliance with the Medicare and[facility] Hospitalcaid EHR Incentive Program,which states Providers who transition their patient to another setting of careor provider of care or refers their patient to another provider of care shouldprovide summary care record for each transition of care or referral. [facility] Allergies No known active allergies Medications MedicationSigDispense QuantityRefillsLast FilledStart DateEnd DateStatus melatonin 3 MG tablet Take 1 Tablet (3 mg) by mouth daily at bedtime.Active cyanocobalamin (VITAMIN B12) 1000 MCG tablet Indications:Vitamin B12 deficiency (HRC)Take 1 Tablet by mouth daily.06/14/2019 Active Cholecalciferol (VITAMIN D3) 1.25 MG (56864 UT) CAPS 01/15/2020Active simvastatin (ZOCOR) 20 MG tablet Indications:Hyperlipidemia, unspecified hyperlipidemia type (HRC)Take 1 Tablet by mouth daily at bedtime. 90 Tablet ctive pyridoxine (VITAMINB-6) 25 MG tablet Indications:Vitamin B6 deficiency (HRC)Take 1 Tablet by mouth daily. 06/21/2020ctive ibuprofen (MOTRIN) 200 MG tablet Take 3 Tablets (600 mg) by mouth every 4 hours as needed for Pain.Active ketorolac (TORADOL) 10 MG tablet 10/04/2020ctive lisinopril (ZESTRIL) 10 MG tablet Indications:HypertensionTake 1 Tablet by mouth daily. Indications: High Blood Pressure Disorder 30 Tablet ctive amoxicillin (AMOXIL) 500 MG capsule Take 2 Capsules (1,000 mg) by mouth two times a day.10/16/2022ctive famotidine (PEPCID) 20 MG tablet Take 1 Tablet (20 mg) by mouth two times a day.Active gabapentin (NEURONTIN) 300 MG capsule Take 2 Capsules (600 mg) by mouth daily at bedtime.10/15/2022ctive Active Problems ProblemNoted DateDiagnosed DateElevated PSA10/23/2020Vitamin B6 deficiency 06/20/2020bnormal gait06/24/2019Sensorineural hearing loss of both ears 05/26/2019Rotator cuff tear arthropathy of left pmexdsew53/16/2020Chronic left shoulder pain05/23/2019Cervical stenosis of spine01/13/2018 Overview (01/13/2018): Mild to moderate at C3-4 due to disc bulge and posterior marginal endplate spurs on CT c-spine 12/2017 Facet arthritis of cervical olxfnp5001/13/2018Severe obstructive sleep apnea 11/12/2017 Overview (10/16/2022): Setting: CPAP 9 cmH20 Supplied by: [facility] PSG done: 04/20/2018 (10/26/17 HST; 06/04/19 titration) AHI 32 RDI 34 Lowest O2 Sat: 85% Davis/Trell Wandering atrial xapspxieh39/09/2017Non morbid obesity due to excess calories 12/04/2016Synovial cyst of lumbar facet joint07/16/2013Lumbar radiculopathy, acute07/02/2013Essential /02/2011HyperlipidemiaType 2 diabetes mellitusAdenomatous polyp of colon Overview (05/01/2020): repeat colonoscopy in 2024 Osteoarthritis Resolved Problems ProblemNoted DateDiagnosed DateResolved DateCOVID-19 ruled out12/03/2019 05/01/2020MCI (mild cognitive impairment) Overview (05/30/2020): Diagnosed by ST evaluation at TCU post hospitalization in 04/2019. SLUMS score was 21/330, CPT 5.1/5.6. MOCA in 2019 and 2020 in clinic. No patient cognitive complaints. Combined forms of age-related cataract of both eyes Overview (07/20/2018): Added automatically from request for surgery [id number] Immunizations ImmunizationAdministration DatesNext DueFlu Vac (3+ yrs)12/25/2006Flu Vac Preserv Free (3+yrs)02/04/2012,01/09/20117043E7B8-Adpdqeelpi25/11/2010HepA-HepB ([place], 18+ yrs)08/14/2016,02/07/2016,01/09/2016Influenza (Fluzone 0.25, 6-35 mos)12/18/2012Influenza IIV3 (Trivalent) Fluzone Highdose, 65+ Yrs (87916) 02/04/2019,12/31/2017,12/17/2016,01/09/2016,01/24/2015,12/08/2013Influenza IIV4 (Quadrivalent) 0.5mL (06643)12/18/2012Influenza Vaccine (3+years) ([facility]) 01/09/2016PCV13 (Prevnar)05/17/2015PPSV23 (Pneumovax)12/04/2016,03/28/2011Pfizer Monovalent 12+ Purple Top07/19/2020,06/28/2020TDAP (ADACEL)04/11/2010Td 10/04/2003Zoster (Zostavax)03/28/2011Zoster RZV (Shingrix)09/30/2017,06/26/2017 Family History Medical HistoryRelationNameCommentsCancer, PancreaticBirth FatherUrolithiasis FatherCancer, ColonBirth MotherCataractBirth MotherMacular Degeneration MotherUrolithiasisBirth MotherUrolithiasisBrotherUrolithiasisSister 1 UrolithiasisSister 2UrolithiasisSister 3Cancer, EsophagealSister 4Drug Abuse Sister 4HypertensionSon 1BrianNo Known ProblemsSon 2DavidAmblyopia/Strabismus Negative Family HistoryAnesthesia ReactionNegative Family HistoryCancer, ProstateNegative Family HistoryDiabetesNegative Family HistoryGlaucomaNegative Family HistoryRetinal DetachmentNegative Family HistoryRelationNameStatus CommentsBirth FatherDeceased (Age 82) MotherDeceasedBrotherAliveMaternal GrandfatherDeceasedMaternal GrandmotherDeceasedPaternal GrandfatherDeceased Paternal GrandmotherDeceasedSister 1AliveSister 2AliveSister 3AliveSister 4 (Age 64)complications of throat cancerSon 1BrianAliveSon 2DavidAlive Social History Tobacco UseTypesPacks/DayYears UsedDateSmoking Tobacco: NeverSmokeless Tobacco: NeverAlcohol UseStandard Drinks/WeekCommentsNo0 (1 standard drink = 0.6 oz pure alcohol)PHQ-2AnswerDate RecordedPHQ-2 Tmuso017ex and Gender Information ValueDate RecordedSex Assigned at BirthNot on fileLegal AptHcdh3907/22/2014 11:57 PM CDTGender IdentityNot on fileSexual OrientationNot on fileOccupationIndustry Job Start DateJob End Dateretired union officialNot on fileNot on fileNot on file Last Filed Vital Signs Vital SignReadingTime TakenCommentsBlood Nizyernk650/9307 4:10 PM CDT Hutzw246310/16/2020 4:10 PM CDTPt zyfcwbmxBamwtgcxyig31.3 ??C (97.4 ??F)10/16/2020 4:10 PM CDTPt reportedRespiratory Ouqh971110/15/2020 9:16 AM CDTOxygen Saturation 99%10/15/2020 9:16 AM CDTInhaled Oxygen Concentration--Ddmsvq804.3 kg (230 lb) 10/21/2022 11:46 AM AMKOtfxkn169.7 cm (5' 8)10/21/2022 11:46 AM CDTBody Mass Index34.9710/21/2022 11:46 AM CDT Plan of Treatment Health MaintenanceDue DateLast DoneCommentsPneumococcal PCV20 Immunization Audvgmwaxn86/27/1951DTaP/Tdap/Td Vaccine (2 - Tdap)/08/2010, 10/04/2003Diabetes: Albumin/Creatinine Ratio, Urine/, 12/17/2017, 12/04/2016, Additional history existsDiabetes: AEJB3A4404/25/2021 10/23/2020, 05/01/2020, 05/12/2019, Additional history existsDiabetes: Foot Exam / (Completed), 06/16/2018 (Completed), 06/26/2017 (Completed), Additional history existsDiabetes: Eye Exam/, 05/25/2020, 05/25/2020, Additional history existsMedicare Annual Wellness Visit /, 05/26/2019, 12/31/2017Diabetes: Mgbguffcbd29/19/2022 10/23/2020, 06/02/2020, 05/01/2020, Additional history existsRSV Vaccine (1 - 1- dose 75+ series)11/01/20234659Rdaudbegkbm30/27/63407106/03/2019, 10/04/2015, 04/30/2010COVID-19 Vaccine ( season)/, 07/24/2021, 02/20/2021, Additional history existsInfluenza Vaccine (#1)/09/2021, 11/29/2020, 02/04/2019, Additional history existsDiabetes: Lipid Panel05/01/2025 05/01/2020, 12/17/2017, 12/11/2016, Additional history existsHepA Vaccine Zthteymdb37/10/2017, 02/07/2016, 01/09/2016HepB QxrzgtzPlrczdrwg98/10/2017, 02/07/2016, 01/09/2016Hep C Screening (Preventive Services)Buqgwvctr96/30/2017, 01/18/2015Pneumococcal Vaccine 50+ RqdReawoklem97/30/2017, 05/17/2015, 03/28/2011Zoster/Shingles DmtprlzQtxtovuni48/26/2018, 06/26/2017, 03/28/2011Hib VaccineAged OutNo longer eligible based on patient's age to complete this topic MCV4 VaccineAged OutNo longer eligible based on patient's age to complete this topicMeningococcal B VaccineAged OutNo longer eligible based on patient's age to complete this topic Medical Devices ImplantedTypeAreaManufacturerDevice IdentifierShelf Expiration DateModel / Serial / LotLens Iol Tecnis Zcb00 22.5 - [id number] Implanted:Qty: 1 on 10/26/2018 [facility] [employer] [id number] / [id number] / Lens Iol Tecnis Zcb00 23.5 - [id number] Implanted:Qty: 1 [facility] 11/09/[facility] [employer] [id number] / [id number] / 0000 Procedures Procedure NamePriorityDate/TimeAssociated DiagnosisCommentsBASIC METABOLIC PANEL Hcimlvl1810/23/2020 10:22 AM CDT Type 2 diabetes mellitus without complication, without long-term current use of insulin (HRC) HGB D1JNrnsvgd16/19/2021 10:22 AM CDT LIPID PANEL & DIRECT LDL (IF NEEDED)Ytgphje4505/01/2020 1:39 PM CRYPTOLOGIC LINGUIST Hyperlipidemia, unspecified hyperlipidemia type ENDOSCOPY, COLON, SCREENING/LVZORJIMDAPzffxja87/27/2020 1:25 PM CRYPTOLOGIC LINGUIST Adenomatous polyp of colon, unspecified part of colon ALBUMIN/CREAT QBQNAOglykzs54/14/2020 1:59 PM CRYPTOLOGIC LINGUIST Type 2 diabetes mellitus without complication, without long-term current use of insulin (HRC) HEPATITIS C ANTIBODY, WITH REFLEX (ANTI-HCV)Efcycdl8012/04/2016 3:45 PM CDT Need for hepatitis C screening test from Last 3 Months or Most Recently Relevant to Health Maintenance Results * (ABNORMAL) Basic Metabolic Panel (10/23/2020 10:22 AM CDT)ComponentValueRef RangeTest MethodAnalysis TimePerformed AtPathologist MurkujubtGajohh487190 - 145 mmol/L10/23/2020 11:16 AM [facility] LABORATORYPotassium4.03.5 - 5.1 mmol/L10/23/2020 11:16 AM [facility] LMPADNMEOTHotvdrlz22998 - 109 mmol/L 10/23/2020 11:16 AM [facility] PBPUOHDWXIQT08872 - 29 mmol/L10/23/2020 11:16 AM [facility] LABORATORYAnion Xew023 - 16 mmol/L10/23/2020 11:16 AM [facility] LABORATORYCalcium9.78.4 - 10.4 mg/dL10/23/2020 11:16 AM [facility] ECKBPUHXHEYSV08(H)7 - 26 mg/dL10/23/2020 11:16 AM [facility] LABORATORYCreatinine0.800.73 - 1.18 mg/dL10/23/2020 11:16 AM [facility] LABORATORYGFR, Estimated>60>60 mL/min/1.88e94610/23/2020 11:16 AM [facility] BORNNBZLPDHvxwcss750(H)70 - 100 mg/dL10/23/2020 11:16 AM [facility] LABORATORYComment:The given reference range is for the fasting state. Non- fasting reference range for glucose is 70 -180 mg/dL.Hours Zskikmc0446/19/2021 11:16 AM [facility] LABORATORYSpecimen (Source)Anatomical Location / LateralityCollection Method / VolumeCollection TimeReceived TimeBlood Venipuncture / Qfcvriv6810/23/2020 10:22 AM CDT10/23/2020 10:50 AM CDT Narrative Authorizing ProviderResult TypeResult StatusLeester Porras MDLAB_1Final ResultPerforming OrganizationAddressCity/State/ZIP CodePhone Number [facility] [address] [place] [address], [facility] [phone] * (ABNORMAL) Hgb A1C (10/23/2020 10:22 AM CDT)ComponentValueRef RangeTest Method Analysis TimePerformed AtPathologist SignatureHemoglobin A1C (Rapid)5.8(H) <=5.6 %10/23/2020 11:02 AM CDTBURNBLUFFTON [facility] LABORATORYSpecimen (Source)Anatomical Location / LateralityCollection Method / VolumeCollection TimeReceived Time BloodVenipuncture / Gyriohz7210/23/2020 10:22 AM CDT10/23/2020 10:50 AM CDT Narrative [facility] - 10/23/2020 11:02 AM CDT For patients not previously diagnosed with diabetes: 5.7-6.4%: Increased risk for diabetes 6.5% and greater: Diagnostic for diabetes For patients diagnosed with diabetes: <8.0%: Goal of therapy for ages 18-75 Clinicians may recommend a higher or lower goal for specific individuals. This Hemoglobin A1c assay has significant interference with elevated Hemoglobin (HbF) and other Hemoglobin variants. In patients with results that do not correlate clinically, contact the laboratory for further direction. Authorizing ProviderResult TypeResult StatusAleyda Porras MDLAB_1Final ResultPerforming OrganizationAddressty/State/ZIP CodePhone Number [facility] [address] [place] [address], [facility] [phone] * (ABNORMAL) Lipid Panel - LDLD If Trig High (05/01/2020 1:39 PM CRYPTOLOGIC LINGUIST)Component ValueRef RangeTest MethodAnalysis TimePerformed AtPathologist Signature Stajhktcmjt4538 - 199 mg/dL05/01/2020 3:37 PM [facility] Pkunjqxtffxu851<=149 mg/dL05/01/2020 3:37 PM [facility] LABORATORYHDL Zuqmldfsqqg95(L)>=40 mg/dL05/01/2020 3:37 PM [facility] LABORATORYLDL, Zpvsvaakko31<130 mg/dL05/01/2020 3:37 PM [facility] LABORATORYNon HDL Chol, Rwwwadxwzd91mz/dL05/01/2020 3:37 PM [facility] LABORATORYCholesterol/HDL Ratio3.301/ 3:37 PM [facility] LABORATORYHours Xkkcuxr860 3:37 PM [facility] LABORATORYSpecimen (Source)Anatomical Location / LateralityCollection Method / VolumeCollection TimeReceived TimeBlood Venipuncture / Nzkayoh1305/01/2020 1:39 PM CST05/01/2020 1:40 PM CRYPTOLOGIC LINGUIST Narrative Authorizing ProviderResult TypeResult StatusAleyda Porras MDLAB_1Final ResultPerforming OrganizationAddressCity/State/ZIP CodePhone Number [facility] [address] [place] [address], [facility] [phone] * Endoscopy, Colon, Screening/Diagnostic (06/03/2019 1:25 PM CRYPTOLOGIC LINGUIST)Anatomical RegionLateralityModalityOtherSpecimen (Source)Anatomical Location / Laterality Collection Method / VolumeCollection TimeReceived Time06/03/2019 1:25 PM CRYPTOLOGIC LINGUIST Narrative 06/03/2019 1:25 PM CRYPTOLOGIC LINGUIST Patient Name: Ellis Thornton Procedure Date: 06/03/2019 1:25 PM Date of : 1950 Admit Type: Outpatient Age: 68 Gender: Male Note Status: Finalized Attending MD: Tomi Jackson MD Procedure: ? Colonoscopy Indications: ? Last colonoscopy: September 2015, ? Follow-up for history of adenomatous ? polyps in the colon Providers: ? Tomi Jackson MD, Maren Michel Referring MD: ?Elver Castro MD Medicines: ? Fentanyl 100 micrograms IV, Midazolam ? 2.5 mg IV, O2 2 l/min per NC and CO2 ? for insufflation Complications: ? No immediate complications. Procedure: ? After I obtained informed consent, ? the scope was passed under direct ? vision. Throughout the procedure, the ? patient's blood pressure, pulse, and ? oxygen saturations were monitored ? continuously. The [id number] was ? introduced through the anus and ? advanced to the cecum, identified by ? appendiceal orifice and ileocecal ? valve. The patient tolerated the ? procedure well. The quality of the ? bowel preparation was fair to good. ? Not split and semi-solid debris. Findings: ? A 5 mm polyp was found in the transverse colon. The ? polyp was semi-sessile. The polyp was removed with a ? cold snare. Resection and retrieval were complete. ? Scattered diverticula were found in the sigmoid colon ? and descending colon. ? The exam was otherwise without abnormality. Moderate Sedation: ? Moderate (conscious) sedation was personally ? administered by the endoscopist. The following ? parameters were monitored: oxygen saturation, heart ? rate, blood pressure, and response to care. Total ? physician intraservice time was 16 minutes. Impression: ?- Preparation of the colon was fair. ? - One 5 mm polyp in the transverse ? colon, removed with a cold snare. ? Resected and retrieved. ? - Diverticulosis in the sigmoid colon ? and in the descending colon. ? - The examination was otherwise ? normal. Recommendation: ?- Await pathology results. ? - Repeat colonoscopy in 3 - 5 years ? for surveillance based on pathology ? results with additional PEG and clear ? liquids before. Procedure Code(s): ?? --- Professional --- ? 61356, Colonoscopy, flexible; with ? removal of tumor(s), polyp(s), or ? other lesion(s) by snare technique ? G0500, Moderate sedation services ? provided by the same physician or ? other qualified health care ? professional performing a ? gastrointestinal endoscopic service ? that sedation supports, requiring the ? presence of an independent trained ? observer to assist in the monitoring ? of the patient's level of ? consciousness and physiological ? status; initial 15 minutes of ? intra-service time; patient age 5 ? years or older (additional time may ? be reported with 68153, as ? appropriate) Diagnosis Code(s): ?? --- Professional --- ? D12.3, Benign neoplasm of transverse ? colon (hepatic flexure or splenic ? flexure) ? Z86.010, Personal history of colonic ? polyps ? K57.30, Diverticulosis of large ? intestine without perforation or ? abscess without bleeding CPT copyright 2018 [employer]. All rights reserved. The codes documented in this report are preliminary and upon medical billing coder review may be revised to meet current compliance requirements. Tomi Jackson MD 06/03/2019 2:00:53 PM This document has been electronically signed. Number of Addenda: 0 Note Initiated On: 06/03/2019 1:25 PM ? Endoscopy Report Procedure Note Tomi Jackson MD - 06/03/2019 Patient Name: Ellis Thornton Procedure Date: 06/03/2019 1:25 PM Date of : 1950 Admit Type: Outpatient Age: 68 Gender: Male Note Status: Finalized Attending MD: Tomi Jackson MD Procedure: Colonoscopy Indications: Last colonoscopy: September 2015, Follow-up for history of adenomatous polyps in the colon Providers: Tomi Jackson MD, Maren Michel Referring MD: Elver Castro MD Medicines: Fentanyl 100 micrograms IV, Midazolam 2.5 mg IV, O2 2 l/min per NC and CO2 for insufflation Complications: No immediate complications. Procedure: After I obtained informed consent, the scope was passed under direct vision. Throughout the procedure, the patient's blood pressure, pulse, and oxygen saturations were monitored continuously. The [id number] was introduced through the anus and advanced to the cecum, identified by appendiceal orifice and ileocecal valve. The patient tolerated the procedure well. The quality of the bowel preparation was fair to good. Not split and semi-solid debris. Findings: A 5 mm polyp was found in the transverse colon. The polyp was semi-sessile. The polyp was removed with a cold snare. Resection and retrieval were complete. Scattered diverticula were found in the sigmoid colon and descending colon. The exam was otherwise without abnormality. Moderate Sedation: Moderate (conscious) sedation was personally administered by the endoscopist. The following parameters were monitored: oxygen saturation, heart rate, blood pressure, and response to care. Total physician intraservice time was 16 minutes. Impression: - Preparation of the colon was fair. - One 5 mm polyp in the transverse colon, removed with a cold snare. Resected and retrieved. - Diverticulosis in the sigmoid colon and in the descending colon. - The examination was otherwise normal. Recommendation: - Await pathology results. - Repeat colonoscopy in 3 - 5 years for surveillance based on pathology results with additional PEG and clear liquids before. Procedure Code(s): --- Professional --- 76630, Colonoscopy, flexible; with removal of tumor(s), polyp(s), or other lesion(s) by snare technique G0500, Moderate sedation services provided by the same physician or other qualified health mall plant caretaker performing a gastrointestinal endoscopic service that sedation supports, requiring the presence of an independent trained observer to assist in the monitoring of the patient's level of consciousness and physiological status; initial 15 minutes of intra-service time; patient age 5 years or older (additional time may be reported with 40542, as appropriate) Diagnosis Code(s): --- Professional --- D12.3, Benign neoplasm of transverse colon (hepatic flexure or splenic flexure) Z86.010, Personal history of colonic polyps K57.30, Diverticulosis of large intestine without perforation or abscess without bleeding CPT copyright 2018 [employer]. All rights reserved. The codes documented in this report are preliminary and upon medical billing coder review may be revised to meet current compliance requirements. Tomi Jackson MD 06/03/2019 2:00:53 PM This document has been electronically signed. Number of Addenda: 0 Note Initiated On: 06/03/2019 1:25 PM Endoscopy Report Authorizing ProviderResult TypeResult StatusDavid Marian [facility] PROCEDURE ORDERABLESFinal Result * Microalbumin Urine Random (UMAR) (05/21/2019 1:59 PM CRYPTOLOGIC LINGUIST)ComponentValueRef RangeTest MethodAnalysis TimePerformed AtPathologist SignatureAlbumin, Urine, Axlobb41.0mg/L05/21/2019 2:37 PM [facility] LABORATORYCreatinine, Urine, Ahjokb87>20 mg/dL05/21/2019 2:37 PM [facility] LABORATORYAlbumin/Creatinine Ratio, Urine, Jhlrio00<30 mg/g005/21/2019 2:37 PM [facility] Specimen (Source)Anatomical Location / LateralityCollection Method / Volume Collection TimeReceived TimeUrine,kgppql0005/21/2019 1:59 PM CST05/21/2019 1:59 PM CRYPTOLOGIC LINGUIST Narrative Authorizing ProviderResult TypeResult StatusDavid T Gloria MDLAB_1Final Result Performing OrganizationAddressCity/State/ZIP CodePhone Number [facility] [address] [place] [address], [facility] [phone] * Hepatitis C Virus Monique with Reflex (12/04/2016 3:45 PM CDT)ComponentValueRef RangeTest MethodAnalysis TimePerformed AtPathologist SignatureHepatitis C AntibodyNonreactiveNonreactivePN SOFTSpecimen (Source)Anatomical Location / LateralityCollection Method / VolumeCollection TimeReceived Time12/04/2016 3:45 PM CDT12/04/2016 6:07 PM CDT Narrative [facility] - 12/04/2016 6:47 PM CDT Performed at [address] [address] CLIA number [id number] Authorizing ProviderResult TypeResult StatusAleyda Porras MDLAB_1Final ResultPerforming OrganizationAddressCity/State/ZIP CodePhone Number [facility] [address] [place] [address] from Last 3 Months or Most Recently Relevant to Health Maintenance Insurance * Guarantor: Ellis Thornton TypeRelation to PatientDate of BirthPhone Billing AddressPersonal/YaoomzSngk48/27/1951 [address] [address] [place] [address] * Guarantor: Ellis Thornton Gibsonfrancie TypeRelation to PatientDate of BirthPhone Billing AddressPersonal/DldgoeCvpj89/27/1951 [address] [address] * Guarantor: Norberto Ellismanuel Kam TypeRelation to PatientDate of BirthPhone Billing AddressMVA/ANJLkks[address] [place] [address] Care Teams Team MemberRelationshipSpecialtyStart [place] [address] [address] [address] PCP - [facility]12/21/11
[2025-03-20 15:34] VITALS: BP 171/94; PULSE 70; RESP 20; TEMP 37; O2SAT 96; BMI 40.1
== END 2025-03-20 19:38 | disposition left against medical advice (07) ==
LOC: ED 19:27
PROVIDERS: Emergency Provider Family Medicine; PCP Family Medicine
DX: Z53.21 Procedure and treatment not carried out due to patient leaving prior to being seen by health care provider (principal)

== ENCOUNTER 2025-03-21 16:33 | Outpatient (CLI) | payer MEDICARE, BC, SELFPAY | END 2025-03-21 16:34 | disposition home or self-care (01) | PROVIDERS: PCP Family Medicine; Visit Provider Family Medicine | DX: R60.0 Localized edema (principal) | CPT/HCPCS: 80076; 84443 ==